=== PATIENT | male | born 1995 | race Caucasian/White ===

== ENCOUNTER 2016-08-13 11:57 | Emergency (ER) | payer BC ==
--- NOTE | 2016-08-13 12:50 | EDPHY ---
H & P Time Seen by Provider: 08/13/16 12:48 HPI/ROS: CHIEF COMPLAINT: Fever and nausea HISTORY OF PRESENT ILLNESS: This 20-year-old man presents with 24 hours of symptoms. He started with a headache yesterday which was slow in onset and not thunderclap. Associated with some mild dizziness and full body aches and subjective fevers. He has also had I have cough with some green mucus production and a stuffy nose. Today he has nausea and vomited once and has not been able to eat or drink much today. Symptoms moderate, not associated with history of foreign travel or IV drug abuse. REVIEW OF SYSTEMS: Eye: no change in vision ENT: no sore throat or ear symptoms Cardiac: no chest pain or syncope Pulmonary: Not short of breath and no hemoptysis. Abdomen: No diarrhea or abdominal pain Musculoskeletal: no back pain or neck pain Skin: no rash Neuro: HPI, no vertigo or dizziness. Constitutional: HPI : no urinary symptoms A comprehensive 10 point review of systems is otherwise negative aside from elements mentioned in the history of present illness. PAST MEDICAL HISTORY: Negative Social history: Nonsmoker, no recent travel, no IV drug abuse. General Appearance: Alert and conversant, cooperative. Eyes: No scleral icterus. No proptosis and extraocular motion intact. ENT, Mouth: Normal mucous membranes. Normal pharynx, slight the enlarged tonsils but no exudate and no trismus and no gum swelling. No facial tenderness. Normal tympanic membranes. No facial swelling. Respiratory: Normal respiratory effort, breath sounds equal, lungs are clear to auscultation. Cardiovascular: Regular rate and rhythm. No murmur. Gastrointestinal: Abdomen is soft and non tender. Neurological: Alert and oriented x3. Normally conversant. Face symmetric, normal movement and sensation in all extremities. Able to sit up in bed, turn over, move around independently. Skin: Warm and dry, no rashes. No purpura or petechiae. Musculoskeletal: Full range of motion of the neck without any stiffness or meningeal signs. Psychiatric: Not agitated. Emergency Department course/MDM: Rapid influenza screening is negative. Most likely non influenza viral illness. Normal saline 2 L and 4 mg IV Zofran for nausea vomiting and volume depletion, 15 mg IV Toradol. 1353: White blood cell count [id number] with normal chemistries. 1420: Feels better but still has some facial pressure. Just received oral Tylenol and will get additional 15 mg IV Toradol. I think it is unlikely he has meningitis, or [employer] [facility] mass or bleed. No facial swelling or tenderness to percussion. Sinusitis also considered but I think it is less likely than viral syndrome. Does not look septic or toxic. Plan for symptomatic control with non-steroidals and increasing fluids. 1505: Sleeping, looks improved, easily awakened, does not look septic or toxic. Smoking Status: Never smoked Constitutional: Initial Vital Signs Temperature (C) 37.4 C 08/13/16 12:15 Heart Rate 99 08/13/16 12:15 Respiratory Rate 18 08/13/16 12:15 Blood Pressure 131/84 H 08/13/16 12:15 O2 Sat (%) 98 08/13/16 12:15 O2 Delivery Mode Room Air Allergies/Adverse Reactions: No Known Allergies Allergy (Unverified 08/13/16 12:17) Home Medications: Medication Instructions Recorded Albuterol Inhaler Hfa PRN 05/03/14 Medical Decision Making Differential Diagnosis: Differential considered including but not limited to influenza, pneumonia, strep throat, sinusitis, meningitis, encephalitis. - Data Points Laboratory Results: Laboratory Results 08/13/16 13:20 08/13/16 13:20 08/13/16 08/13/16 08/13/16 13:20 13:20 12:15 WBC 10.87 10^3/uL H 10^3/uL (3.80-9.50) RBC 5.07 10^6/uL 10^6/uL (4.40-6.38) Hgb 16.1 g/dL g/dL (13.7-17.5) Hct 46.5 % % (40.0-51.0) MCV 91.7 fL fL (81.5-99.8) MCH 31.8 pg pg (27.9-34.1) MCHC 34.6 g/dL g/dL (32.4-36.7) RDW 12.0 % % (11.5-15.2) Plt Count 314 10^3/uL 10^3/uL (150-400) MPV 9.9 fL fL (8.7-11.7) Neut % (Auto) 75.5 % H % (39.3-74.2) Lymph % (Auto) 9.4 % L % (15.0-45.0) [place] % (Auto) 14.1 % H % (4.5-13.0) Eos % (Auto) 0.4 % L % (0.6-7.6) Baso % (Auto) 0.3 % % (0.3-1.7) Nucleat RBC Rel Count 0.0 % % (0.0-0.2) Absolute Neuts (auto) 8.22 10^3/uL H 10^3/uL (1.70-6.50) Absolute Lymphs (auto) 1.02 10^3/uL 10^3/uL (1.00-3.00) Absolute Monos (auto) 1.53 10^3/uL H 10^3/uL (0.30-0.80) Absolute Eos (auto) 0.04 10^3/uL 10^3/uL (0.03-0.40) Absolute Basos (auto) 0.03 10^3/uL 10^3/uL (0.02-0.10) Absolute Nucleated RBC 0.00 10^3/uL 10^3/uL (0-0.01) Immature Gran % 0.3 % % (0.0-1.1) Immature Gran # 0.03 10^3/uL 10^3/uL (0.00-0.10) Sodium 139 mEq/L mEq/L (134-144) Potassium 4.6 mEq/L mEq/L (3.5-5.2) Chloride 102 mEq/L mEq/L (97-110) Carbon Dioxide 23 mEq/l mEq/l (22-31) Anion Gap 14 mEq/L mEq/L (8-16) BUN 13 mg/dL mg/dL (7-23) Creatinine 0.9 mg/dL mg/dL (0.7-1.3) Estimated GFR > 60 Glucose 80 mg/dL mg/dL (70-100) Calcium 9.7 mg/dL mg/dL (8.5-10.4) Influenza Typ A,B (DFA) NEGATIVE FOR FLU (NEGATIVE) Medications Given: Discontinued Medications Acetaminophen (Tylenol) 650 mg PO EDNOW ONE Stop: 08/13/16 14:12 Last Admin: 08/13/16 14:15 Dose: 650 mg Sodium Chloride (Ns) 1,000 mls @ 0 mls/hr IV ONCE ONE PRN Reason: Wide Open Stop: 08/13/16 13:06 Last Admin: 08/13/16 13:21 Dose: 1,000 mls Sodium Chloride (Ns) 1,000 mls @ 0 mls/hr IV ONCE ONE PRN Reason: Wide Open Stop: 08/13/16 13:06 Last Admin: 08/13/16 14:00 Dose: 1,000 mls Ketorolac Tromethamine (Toradol) 15 mg IVP EDNOW ONE Stop: 08/13/16 13:07 Last Admin: 08/13/16 13:21 Dose: 15 mg Ketorolac Tromethamine (Toradol) 15 mg IVP EDNOW ONE Stop: 08/13/16 14:27 Last Admin: 08/13/16 14:44 Dose: 15 mg Ondansetron HCl (Zofran) 4 mg IVP EDNOW ONE Stop: 08/13/16 13:06 Last Admin: 08/13/16 13:21 Dose: 4 mg Departure - Departure Disposition: Home, Routine, Self-Care Clinical Impression: Viral syndrome, Dehydration Condition: Good Instructions: Dehydration (ED), Viral Syndrome (ED) Additional Instructions: Ibuprofen 600 mg every 6 hours by mouth over the next 48 hours. Please return if you get worsening or severe headache, neck stiffness, worsening of your symptoms. Referrals: JUAN RAMON Hollingsworth,Bob [Clinic] - As per Instructions Marvin Barkley MD [Medical Doctor] - As per Instructions
[2016-08-13] MEDS ORDERED: ONDANSETRON 4 MG/2 ML VIAL IVP ONE (13:05)
[2016-08-13] MEDS ORDERED: NS 1,000 ML IV ONE ×2 (13:05)
[2016-08-13] MEDS ORDERED: KETOROLAC 30 MG/1 ML SDV IVP ONE ×2 (13:06→14:26)
[2016-08-13 13:31] LABS: % IMMATURE GRANULYOCYTES 0.3 % (0.0-1.1); ABSOLUTE IMMATURE GRANULOCYTES 0.03 10^3/uL (0.00-0.10); ADD DIFF? NO; ADD MORPH? NO; ADD SCAN? NO; ATYPICAL LYMPHOCYTE FLAG 10 (0-99); FRAGMENT RBC FLAG 0 (0-99); HEMATOCRIT 46.5 % (40.0-51.0); HEMOGLOBIN 16.1 g/dL (13.7-17.5); LEFT SHIFT FLG 0 (0-99); LIPEMIA HEMOLYSIS FLAG 90 (0-99); MEAN CELL HEMOGLOBIN 31.8 pg (27.9-34.1); MEAN CELL HEMOGLOBIN CONCENTR. 34.6 g/dL (32.4-36.7); MEAN CELL VOLUME 91.7 fL (81.5-99.8); MEAN PLATELET VOLUME 9.9 fL (8.7-11.7); PLATELET CLUMPS FLAG 0 (0-99); PLATELET COUNT 314 10^3/uL (150-400); RED BLOOD CELL COUNT 5.07 10^6/uL (4.40-6.38)
[2016-08-13 13:45] LABS: ANION GAP 14 mEq/L (8-16); CALCIUM 9.7 mg/dL (8.5-10.4); CARBON DIOXIDE 23 mEq/l (22-31); CHLORIDE 102 mEq/L (97-110); CREATININE 0.9 mg/dL (0.7-1.3); GLOMERULAR FILTRATION RATE > 60; GLUCOSE 80 mg/dL (70-100); POTASSIUM 4.6 mEq/L (3.5-5.2); SODIUM 139 mEq/L (134-144)
[2016-08-13 14:07] VITALS: RESP 20
[2016-08-13] MEDS ORDERED: ACETAMINOPHEN 325 MG TAB PO ONE (14:11)
[2016-08-13 15:31] VITALS: BP 139/59; PULSE 95; TEMP 98.1; O2SAT 95
== END 2016-08-13 15:33 | disposition home or self-care (01) ==
DX: B34.9 Viral infection, unspecified (principal); E86.0 Dehydration
CPT/HCPCS: 96374; J1885; J2405

== ENCOUNTER 2016-12-14 04:55 | Emergency (ER) | payer BC ==
[2016-12-14 04:59] VITALS: O2SAT 97
[2016-12-14] MEDS ORDERED: NS 1,000 ML IV ONE (05:09)
[2016-12-14] MEDS ORDERED: methylPREDNISolone SOD SUCC 125 MG/2 ML VIAL IVP ONE (05:09)
[2016-12-14] MEDS ORDERED: RANITIDINE 50 MG/2 ML VIAL IVP ONE (05:09)
--- NOTE | 2016-12-14 05:12 | EDPHY ---
H & P Stated Complaint: hives Time Seen by Provider: 12/14/16 05:03 HPI/ROS: HPI The patient presents with rash which is pruritic on his torso, arms and legs, it started slowly several hours ago and has gotten progressively worse to the point now where he feels some tingling in his throat and has had a runny nose. He was unable to sleep for much of the night because he said he felt irritable. He ate out at a restaurant he has not been to before, however otherwise does not have any new exposures. He does have seasonal allergies but does not have any known allergies or history of hives. REVIEW OF SYSTEMS Constitutional: No fever, no chills. Eyes: No discharge. ENT: No sore throat. Cardiovascular: No chest pain, no palpitations. Respiratory: No cough, no shortness of breath. Gastrointestinal: No abdominal pain, no vomiting. Genitourinary: No hematuria. Musculoskeletal: No back pain. Skin: Positive for Neurological: No headache. PMHx: Healthy Soc Hx: College student PHYSICAL General Appearance: Alert, no distress Eyes: Pupils equal and round no pallor or injection ENT, Mouth: Mucous membranes moist, posterior pharynx is slightly edematous and erythematous, uvula is midline, there is no stridor or drooling Respiratory: There are no retractions, lungs are clear to auscultation, no wheezing Cardiovascular: Regular rate and rhythm Gastrointestinal: Abdomen is soft and non-tender, no masses, bowel sounds normal Neurological: A&O, moves all extremities Skin: Warm and dry, diffuse urticaria throughout abdomen, back, arms and legs Musculoskeletal: Neck is supple non tender Extremities: symmetrical, full range of motion Psychiatric: Patient is oriented X 3, there is no agitation Source: Patient Exam Limitations: No limitations - Personal History Current Tetanus/Diphtheria Vaccine: Yes - Medical/Surgical History Hx Asthma: Yes Hx Chronic Respiratory Disease: No Hx Diabetes: No Hx Cardiac Disease: No Hx Renal Disease: No Hx Cirrhosis: No Hx Alcoholism: No Hx HIV/AIDS: No Hx Splenectomy or Spleen Trauma: No Other PMH: PMHx: Seasonal allergies. PSHx: R foot, wisdom tooth removal - Social History Smoking Status: Never smoked Constitutional: Initial Vital Signs Temperature (C) 36.3 C 12/14/16 04:56 Heart Rate 76 12/14/16 04:56 Respiratory Rate 14 12/14/16 04:56 Blood Pressure 135/87 H 12/14/16 04:56 O2 Sat (%) 97 12/14/16 04:56 O2 Delivery Mode Room Air Allergies/Adverse Reactions: No Known Allergies Allergy (Unverified 08/13/16 12:17) Home Medications: Medication Instructions Recorded Albuterol Inhaler Hfa PRN 05/03/14 EPINEPHrine [Epipen 0.3 MG] 0.3 mg IM ONCE #2 syr 12/14/16 Medical Decision Making Differential Diagnosis: This is a 21-year-old male who presents with several hours of rash and subsequently throat swelling. On exam, he has diffuse urticaria with slight erythema and edema of his posterior pharynx. His airway is largely patent, he does not have any wheezing. He is not vomiting or hypotensive. Plan for treatment with epinephrine, Benadryl, Solu-Medrol, Pepcid. Differential diagnosis includes allergic reaction, anaphylaxis, urticaria. In the emergency room, the patient was monitored for several hours. He felt better after the above treatment and his urticaria had improved. He felt well enough to go home and was discharged with prescription for epi pens. Critical Care Time: CRITICAL CARE Critical care time spent by me, Dr. Reveles, exclusively with this patient was 15 minutes, exclusive of PA time and exclusive of procedures. The organ system at risk was respiratory and I gave IV fluids, epinephrine, Solu-Medrol, Benadryl to prevent worsening of the patients condition. - Data Points Medications Given: Discontinued Medications Diphenhydramine HCl (Benadryl Injection) 25 mg IVP EDNOW ONE Stop: 12/14/16 05:10 Last Admin: 12/14/16 05:20 Dose: 25 mg Epinephrine HCl (Epinephrine) 0.3 mg IM EDNOW ONE Stop: 12/14/16 05:10 Last Admin: 12/14/16 05:28 Dose: 0.3 mg Sodium Chloride (Ns) 1,000 mls @ 0 mls/hr IV ONCE ONE; Wide Open PRN Reason: Protocol Stop: 12/14/16 05:10 Last Admin: 12/14/16 05:20 Dose: 1,000 mls Methylprednisolone Sodium Succinate (Solu-Medrol) 125 mg IVP EDNOW ONE Stop: 12/14/16 05:10 Last Admin: 12/14/16 05:28 Dose: 125 mg Ranitidine HCl (Zantac) 50 mg IVP EDNOW ONE Stop: 12/14/16 05:10 Last Admin: 12/14/16 05:29 Dose: 50 mg Departure - Departure Disposition: Home, Routine, Self-Care Clinical Impression: Urticaria Acute anaphylaxis Qualifiers: Encounter type: initial encounter Qualified Code(s): T78.2XXA - Anaphylactic shock, unspecified, initial encounter Condition: Good Instructions: Urticaria (ED) Additional Instructions: Please return to the emergency room if your worse in any way. We are prescribing you epi pens in case this happens again. Referrals: JUAN RAMON Hollingsworth,. [Clinic] - As per Instructions Prescriptions: EPINEPHrine [Epipen 0.3 MG] 0.3 mg IM ONCE #2 syr
[2016-12-14 06:42] VITALS: BP 135/76; PULSE 79; RESP 16; TEMP 98.6
== END 2016-12-14 06:42 | disposition home or self-care (01) ==
DX: T78.2XXA Anaphylactic shock, unspecified, initial encounter (principal); L50.9 Urticaria, unspecified; J45.909 Unspecified asthma, uncomplicated; E86.9 Volume depletion, unspecified
CPT/HCPCS: J0171; J1200; J2780